=== PATIENT | male | born 1970 | race Caucasian/White ===

== ENCOUNTER 2016-05-13 00:13 | Emergency (ER) | payer SELFPAY ==
[~2016-05-13] VITALS: Ht 170.2 cm; Wt 90.7 kg
[2016-05-13] MEDS ORDERED: GABA-586 PO (00:42)
[2016-05-13] MEDS ORDERED: HYDR25TA PO (00:42)
--- NOTE | 2016-05-13 00:43 | PHYS DOC ---
Past Medical History Additional Past Medical Histor: anxiety and bipolar Additional Past Surgical Histo: right shoulder surgery and right wrist surgery in the past Alcohol Use: Rarely Adult General Chief Complaint Chief Complaint: UPPER EXTREMITY PAIN HPI HPI 46-year-old male presenting to the emergency department today with right arm pain. He describes the pain as a sharp stabbing burning sensation in his entire right arm with hyperalgesia. He reports pain even to light touch to the arm. He denies having chest pain shortness of breath or more proximal shoulder pain. His pain is been present for many years and comes and goes. No specific timing present. No alleviating or exacerbating factors present. Review of systems is negative for abdominal pain nausea vomiting fevers or chills. He denies suicidal or homicidal ideation. All other review of systems is negative unless otherwise noted in history of present illness. Review of Systems Review of Systems SEE ABOVE. Allergies Allergies Allergies Coded Allergies Type Severity Reaction Last Updated Verified lithium Allergy Severe renal failure 05/13/16 Yes buspirone Allergy Intermediate "lips numb" 05/13/16 Yes lamotrigine Allergy Intermediate rash 05/13/16 Yes Physical Exam Physical Exam Constitutional: Well developed, well nourished, no acute distress, non-toxic appearance. HENT: Normocephalic, atraumatic, bilateral external ears normal, oropharynx moist, no oral exudates, nose normal. [] Eyes: PERRLA, EOMI, conjunctiva normal, no discharge. Neck: Normal range of motion, no tenderness, supple, no stridor. [] Cardiovascular:Heart rate regular rhythm, no murmur Lungs & Thorax: Bilateral breath sounds clear to auscultation [] Abdomen: Bowel sounds normal, soft, no tenderness, no masses, no pulsatile masses. Skin: Warm, dry, no erythema, no rash. [] Back: No tenderness, no CVA tenderness. Extremities: RUE Patient has pain to light touch of the entire right upper extremity without specific tenderness of the joint. Normal range of motion of the wrist elbow and shoulder. No evidence of traumatic injury. 2 second cap refill distally. Patient demonstrates the ability to make an "A OK", cross their fingers, and give a thumbs up. Sensory function of the radial, ulnar, and median nerve are intact.. The patient's left upper extremity and lower extremities are neurovascularly intact with normal range of motion without any evidence of trauma. Neurologic: Alert and oriented X 3, normal motor function, normal sensory function, no focal deficits noted. Psychologic: Affect normal, judgement normal, mood normal. [] Current Patient Data Vital Signs Vital Signs Date Time Temp Pulse Resp B/P Pulse Ox O2 Delivery O2 Flow Rate FiO2 05/13/16 00:30 98.0 124 22 114/90 98 Room Air 98.0 EKG EKG [] Radiology/Procedures Radiology/Procedures [] Course & Med Decision Making Course & Med Decision Making Pertinent Labs and Imaging studies reviewed. (See chart for details) [] 46-year-old male presenting to the emergency department with hyperalgesia and neuropathic pain in his right upper extremity. The extremity is neurovascularly intact and without any evidence of injury. Otherwise the patient 's vital signs show mild tachycardia which is likely secondary to pain and anxiety. He denied any chest pain or shortness of breath. I did not believe that this patient's presentation was suggestive of referred pain. I gave the patient oral medication for symptomatic relief to follow up with his PCP over the next 2-3 days. Dragon Disclaimer Dragon Disclaimer This electronic medical record was generated, in whole or in part, using a voice recognition dictation system. Departure Departure Impression: Primary Impression: Right arm pain Disposition: HOME, SELF-CARE Condition: STABLE Referrals: ESTRELLA TARIQ MD Additional Instructions: Thank you for allowing us to participate in your care today. Followup with your primary care physician in 3 days if your symptoms do not improve. If you do not have a primary care provider you can ask for a list of our primary care providers. Return to the emergency department you have any new or concerning findings. This should be evaluated by the primary care physician and any necessary consulting services for continued management within a few days after discharge. Return to emergency room if you have any new or concerning symptoms including but not limited to fever, chills, nausea, vomiting, intractable pain, any new rashes, chest pain, shortness of air, uncontrolled bleeding, difficulty breathing, and/or vision loss. Scripts Hydroxyzine Hcl 25 Mg Tablet1 Tab PO PRN QHS PRN ANXIETY / AGITATION #5 TAB Prov:SEAN GHOTRA MD 05/13/16 Gabapentin 300 Mg [id number] Mg PO TID #12 CAP Prov:SEAN GHOTRA MD 05/13/16 SEAN GHOTRA MD May 13, 2016 00:42
[2016-05-13 01:21] VITALS: BP 114/90
== END 2016-05-13 01:45 | disposition home or self-care (01) ==
LOC: ER 00:13
DX: M79.601 Pain in right arm (principal); R20.8 Other disturbances of skin sensation; R00.0 Tachycardia, unspecified; F31.9 Bipolar disorder, unspecified; F41.9 Anxiety disorder, unspecified; Z88.8 Allergy status to other drugs, medicaments and biological substances; Z91.048 Other nonmedicinal substance allergy status
CPT/HCPCS: 99283